=== PATIENT | female | born 1985 | race Caucasian/White ===

== ENCOUNTER 2017-05-05 13:50 | Emergency (ER) | payer BC, OTHER ==
[2017-05-05 14:07] VITALS: BP 152/106
[2017-05-05] MEDS ORDERED: Lactated Ringers 1,000 ML IV ONE (14:37)
[2017-05-05] MEDS ORDERED: Ondansetron 4 MG Tab.DIS PO ONE (14:38)
[2017-05-05] MEDS ORDERED: HYDROmorphone 0.5 MG/0.5 ML Syringe IVPUSH ONE (14:38)
--- NOTE | 2017-05-05 14:40 | EDM.PDOC ---
ED HPI GENERAL MEDICAL PROBLEM - General Chief Complaint: Genitourinary Problem Stated Complaint: PAIN Time Seen by Provider: 05/05/17 14:20 Source of Information: Reports: Patient, Other (clinic records) History Limitations: Reports: No Limitations - History of Present Illness INITIAL COMMENTS - FREE TEXT/NARRATIVE: Was seen in the clinic yesterday and started on Levaquin for a presumed UTI. Is worse today so comes to the ER. Pain in the LLQ is worse with coughing. Has L flank pain also. No fever. Some nausea. Urine is a little dark in color today. To date her urine cx is growing >100,000 cfu/ml of a gm negative anny Has had a colonoscopy and recalls that she had diverticulosis at that time noted. Onset Date: 05/03/17 Duration: Day(s):, Getting Worse Location: Reports: Abdomen (LLQ), Back (L flank) Quality: Reports: Ache Severity: Moderate Improves with: Reports: None Worsens with: Reports: Other (time) Context: Reports: Other (has known diverticulosis) Associated Symptoms: Reports: Malaise, Nausea/Vomiting (nausea only). 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) (Levaquin x 2 doses) Left Lower Abdominal Pain Score (Numeric/FACES): 9 - Related Data Allergies Allergy/AdvReac Type Severity Reaction Status Date / Time amoxicillin Allergy Other Verified 05/05/17 14:07 Penicillins Allergy Other Verified 05/05/17 14:07 Home Meds: Home Meds Levonorgestrel [Mirena] 1 ea IUTERINE ASDIRECTED 05/15/15 [History] Levofloxacin 1 tab PO DAILY 05/05/17 [History] Sertraline [Zoloft] 100 mg PO DAILY 05/05/17 [History] traMADol [Ultram] 50 - 100 mg PO QID PRN 05/05/17 [History] Past Medical History HEENT History: Reports: Impaired Vision Gastrointestinal History: Reports: GI Bleed Genitourinary History: Reports: Pyelonephritis 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: Psychiatric History: Reports: Depression Endocrine/Metabolic History: Reports: Obesity/BMI 30+ - Infectious Disease History Infectious Disease History: Reports: Chicken Pox - Past Surgical History Female Surgical History: Reports: None Endocrine Surgical History: Reports: None Social & Family History - Tobacco Use Smoking Status *Q: Unknown Ever Smoked Second Hand Smoke Exposure: No - Recreational Drug Use Recreational Drug Use: No ED ROS GENERAL - Review of Systems Review Of Systems: See Below Constitutional: Reports: Malaise HEENT: Reports: No Symptoms Respiratory: Reports: No Symptoms Cardiovascular: Reports: Lightheadedness Endocrine: Reports: No Symptoms GI/Abdominal: Reports: Abdominal Pain (LLQ), Anorexia, Other (stool mucousy for a few weeks, no diarrhea). Denies: Constipation, Diarrhea : Reports: Flank Pain (left) Musculoskeletal: Reports: No Symptoms Skin: Reports: No Symptoms Neurological: Reports: No Symptoms Psychiatric: Reports: No Symptoms ED EXAM, RENAL/ - Physical Exam Exam: See Below Exam Limited By: No Limitations General Appearance: Alert, WD/WN, Mild Distress Eye Exam: Bilateral Eye: Normal Inspection Ears: Normal External Exam, Normal Canal, Hearing Grossly Normal Nose: Normal Inspection, Normal Mucosa, No Blood Throat/Mouth: Normal Inspection, Normal Lips, Normal Oropharynx, Normal Voice, No Airway Compromise Head: Atraumatic, Normocephalic Neck: Normal Inspection, Supple, Non-Tender Respiratory/Chest: No Respiratory Distress, Lungs Clear, Normal Breath Sounds, No Accessory Muscle Use Cardiovascular: Regular Rate, Rhythm, No Edema, Tachycardia GI/Abdominal: Normal Bowel Sounds, Soft, No Distention, Rebound (mild), Tender ( LLQ) Back Exam: Normal Inspection. No: CVA Tenderness (R), CVA Tenderness (L) Extremities: Normal Inspection, Normal Range of Motion, Non-Tender, No Pedal Edema Neurological: Alert, Oriented, CN II-XII Intact, Normal Cognition, No Motor/ Sensory Deficits Psychiatric: Normal Affect, Normal Mood Skin Exam: Warm, Dry, Intact, Normal Color, No Rash Lymphatic: No Adenopathy Course - Vital Signs Last Recorded V/S: Last Vital Signs Temp 36.9 C 05/05/17 14:04 Pulse 109 H 05/05/17 14:04 Resp 16 05/05/17 14:04 BP 152/106 H 05/05/17 14:04 Pulse Ox 99 05/05/17 14:04 - Orders/Labs/Meds Orders: Active Orders 24 hr Category Date Time Status Abdomen Pelvis w Cont [CT] Stat Exams 05/05/17 14:45 Taken Sodium Chloride 0.9% [Normal Saline] 100 ml Med 05/05/17 15:00 Active IV ASDIRECTED Medication Orders Sodium Chloride (Normal Saline) 100 mls @ 3 mls/sec IV ASDIRECTED FLAKITA Last Admin: 05/05/17 15:20 Dose: 3.5 mls/sec Labs: Laboratory Tests 05/05/17 05/05/17 05/05/17 Range/Units 14:29 14:47 14:47 WBC 8.6 (4.5-11.0) K/uL RBC 4.45 (3.30-5.50) M/uL Hgb 13.4 (12.0-15.0) g/dL Hct 38.7 (36.0-48.0) % MCV 87 (80-98) fL MCH 30 (27-31) pg MCHC 35 (32-36) % Plt Count 280 (150-400) K/uL Sodium 139 L (140-148) mmol/L Potassium 3.2 L (3.6-5.2) mmol/L Chloride 102 (100-108) mmol/L Carbon Dioxide 27 (21-32) mmol/L Anion Gap 13.2 (5.0-14.0) mmol/L BUN 11 (7-18) mg/dL Creatinine 1.1 H (0.6-1.0) mg/dL Est Cr Clr Drug Dosing 60.74 mL/min Estimated GFR (MDRD) 58 L (>60) Glucose 83 (74-106) mg/dL Calcium 8.6 (8.5-10.1) mg/dL Magnesium (1.8-2.4) mg/dL Urine Color Yellow Urine Appearance Cloudy Urine pH 5.0 (4.5-8.0) Ur Specific [place] 1.015 (1.008-1.030) Urine Protein Negative (NEGATIVE) mg/dL Urine Glucose (UA) Normal (NEGATIVE) mg/dL Urine Ketones Negative (NEGATIVE) mg/dL Urine Occult Blood Moderate (NEGATIVE) Urine Nitrite Negative (NEGATIVE) Urine Bilirubin Negative (NEGATIVE) Urine Urobilinogen Normal (NORMAL) mg/dL Ur Leukocyte Esterase Large (NEGATIVE) Urine RBC 0-5 (0-5) Urine WBC Packed H (0-5) Ur Epithelial Cells Few Amorphous Sediment Not seen Urine Bacteria Many Urine Mucus Rare 05/05/17 Range/Units 15:14 WBC (4.5-11.0) K/uL RBC (3.30-5.50) M/uL Hgb (12.0-15.0) g/dL Hct (36.0-48.0) % MCV (80-98) fL MCH (27-31) pg MCHC (32-36) % Plt Count (150-400) K/uL Sodium (140-148) mmol/L Potassium (3.6-5.2) mmol/L Chloride (100-108) mmol/L Carbon Dioxide (21-32) mmol/L Anion Gap (5.0-14.0) mmol/L BUN (7-18) mg/dL Creatinine (0.6-1.0) mg/dL Est Cr Clr Drug Dosing mL/min Estimated GFR (MDRD) (>60) Glucose (74-106) mg/dL Calcium (8.5-10.1) mg/dL Magnesium 1.6 L (1.8-2.4) mg/dL Urine Color Urine Appearance Urine pH (4.5-8.0) Ur Specific [place] (1.008-1.030) Urine Protein (NEGATIVE) mg/dL Urine Glucose (UA) (NEGATIVE) mg/dL Urine Ketones (NEGATIVE) mg/dL Urine Occult Blood (NEGATIVE) Urine Nitrite (NEGATIVE) Urine Bilirubin (NEGATIVE) Urine Urobilinogen (NORMAL) mg/dL Ur Leukocyte Esterase (NEGATIVE) Urine RBC (0-5) Urine WBC (0-5) Ur Epithelial Cells Amorphous Sediment Urine Bacteria Urine Mucus Meds: Medications Generic Name Dose Route Start Last Admin Trade Name Freq PRN Reason Stop Dose Admin Sodium Chloride 100 mls @ 3 mls/sec 05/05/17 15:00 05/05/17 15:20 Normal Saline IV 3.5 mls/sec ASDIRECTED FLAKITA Administration Discontinued Medications Generic Name Dose Route Start Last Admin Trade Name Freq PRN Reason Stop Dose Admin Hydromorphone HCl 0.5 mg 05/05/17 14:38 05/05/17 14:55 Dilaudid IVPUSH 05/05/17 14:39 0.5 mg ONETIME ONE Administration Lactated Ringer's 1,000 mls @ 1,000 mls/hr 05/05/17 14:37 05/05/17 14:55 Ringers, Lactated IV 05/05/17 15:36 1,000 mls/hr BOLUS ONE Administration Clindamycin Phosphate 900 mg/ 106 mls @ 200 mls/hr 05/05/17 15:01 Sodium Chloride IV 05/05/17 15:32 ONETIME ONE Iopamidol 150 ml 05/05/17 15:00 05/05/17 15:20 Isovue-300 (61%) IV 150 ml . DIRECTED FLAKITA Administration Magnesium Oxide 800 mg 05/05/17 15:47 Magnesium Oxide PO 05/05/17 15:48 ONETIME ONE Ondansetron HCl 4 mg 05/05/17 14:38 05/05/17 14:55 Zofran Odt PO 05/05/17 14:39 4 mg ONETIME ONE Administration Potassium Chloride 40 meq 05/05/17 15:13 Klor-Con M20 PO 05/05/17 15:14 ONETIME ONE Sodium Chloride 10 ml 05/05/17 15:10 Saline Flush FLUSH 05/05/17 15:11 ONETIME ONE - Radiology Interpretation Free Text/Narrative:: 4mm obstructing proximal L ureteral stone with hydronephrosis. CT Results Date: 05/05/17 CT Results Time: 16:00 Departure - Departure Time of Disposition: 16:30 Disposition: DC/Tfer to Acute Hospital 02 Condition: Fair Clinical Impression: UTI, Urinary tract infectious disease, Kidney stone - Discharge Information Referrals: Jose Espinal MD [Primary Care Provider] - Forms: ED Department Discharge - My Orders Last 24 Hours: My Active Orders 05/05/17 14:45 Abdomen Pelvis w Cont [CT] Stat 05/05/17 15:00 Sodium Chloride 0.9% [Normal Saline] 100 ml IV ASDIRECTED - Assessment/Plan Last 24 Hours: My Active Orders 05/05/17 14:45 Abdomen Pelvis w Cont [CT] Stat 05/05/17 15:00 Sodium Chloride 0.9% [Normal Saline] 100 ml IV ASDIRECTED
[2017-05-05] MEDS ORDERED: Iopamidol 612 MG/ML 150 ML Bottle IV SCH (15:00)
[2017-05-05] MEDS ORDERED: Sodium Chloride 0.9% 100 ML IV SCH (15:00)
[2017-05-05] MEDS ORDERED: Clindamycin Phosphate 900 MG in Sodium Chloride 0.9% 100 ML IV ONE ×2 (15:01→16:30)
[2017-05-05] MEDS ORDERED: Sodium Chloride 0.9% 10 ML Syringe FLUSH ONE (15:10)
[2017-05-05] MEDS ORDERED: Potassium Chloride 20 MEQ Tab.ER PO ONE (15:13)
[2017-05-05] MEDS ORDERED: Magnesium Oxide 400 MG Tab PO ONE (15:47)
== END 2017-05-05 16:53 ==
LOC: JP.ED 13:50
DX: N13.2 Hydronephrosis with renal and ureteral calculous obstruction (principal); N39.0 Urinary tract infection, site not specified; E66.9 Obesity, unspecified; Z88.1 Allergy status to other antibiotic agents; Z88.0 Allergy status to penicillin; Z79.899 Other long term (current) drug therapy
CPT/HCPCS: 36415; 74177; 80048; 81001; 83735; 85027; 96361; 96374; 96375; 99285; A9270; J1170; J7030; J7120; S0077